=== PATIENT | male | born 1955 | race Caucasian/White ===

== ENCOUNTER 2017-02-22 19:16 | Emergency (ER) | payer OTHER ==
[~2017-02-22] VITALS: Ht 177.8 cm; Wt 104.5 kg
[2017-02-22] VITALS (7 sets, daily range): BP systolic 120–130; BP diastolic 80–95; PULSE 48–65; RESP 16–18; TEMP 97.5–97.6; O2SAT 92–98
[2017-02-22] MEDS ORDERED: GADODIAMIDE PF 287 MG/ML 20 ML VIAL (for RAD MRI) IV PUSH ONE (19:17)
[2017-02-22] MEDS ORDERED: IOHEXOL 350 MG/ML 10 ML VIAL (for RAD DIAG) IVCONTRAST ONE (19:17)
[2017-02-22] MEDS ORDERED: LOVA40TA PO (19:52)
[2017-02-22] MEDS ORDERED: ATEN50TA PO (19:52)
[2017-02-22] MEDS ORDERED: ASPI-516 CHEW (19:52)
[2017-02-22] MEDS ORDERED: SODIUM CHLOR 0.9% 1000 ML INJ 1,000 ML IV ONE (20:09)
[2017-02-22 20:28] LABS: AUTOMATED NEUTROPHIL # 5.9 TH/MM3 (1.8-7.7); BASOPHIL # 0.1 TH/MM3 (0-0.2); BASOPHIL % 0.5 % (0.0-2.0); EOSINOPHIL # 0.2 TH/MM3 (0-0.4); EOSINOPHIL % 1.7 % (0.0-4.0); HEMATOCRIT 44.5 % (39.0-51.0); HEMOGLOBIN 15.3 GM/DL (13.0-17.0); LYMPH % 34.6 % (9.0-44.0); LYMPHOCYTE # 3.8 TH/MM3 (1.0-4.8); MEAN CELL VOLUME 92.7 FL (80.0-100.0); MEAN CORPUSCULAR HEMOGLOBIN 31.9 PG (27.0-34.0); MEAN CORPUSCULAR HGB CONC 34.4 % (32.0-36.0); MEAN PLATELET VOLUME 6.3 FL (7.0-11.0); MONO % 9.3 % (0.0-8.0); NEUT % 53.9 % (16.0-70.0); PLATELET COUNT 226 TH/MM3 (150-450); RED CELL DISTRIBUTION WIDTH 13.9 % (11.6-17.2)
--- NOTE | 2017-02-22 20:34 | RADRPT ---
EXAM DATE/TIME: 02/22/2017 20:15 [facility] COMPARISON: No previous studies available for comparison. INDICATIONS : Stroke alert; nystagmus. RADIATION DOSE: 40.70 CTDIvol (mGy) MEDICAL HISTORY : None SURGICAL HISTORY : None. ENCOUNTER: Initial ACUITY: 1 day PAIN SCALE: 0/10 LOCATION: cranial TECHNIQUE: Multiple contiguous axial images were obtained of the head. Using automated exposure control and adj ustment of the mA and/or kV according to patient size, radiation dose was kept as low as reasonably a chievable to obtain optimal diagnostic quality images. DICOM format image data is available electro nically for review and comparison. FINDINGS: CEREBRUM: The ventricles are normal for age. No evidence of midline shift, mass lesion, hemorrhage or acute in farction. No extra-axial fluid collections are seen. POSTERIOR FOSSA: The cerebellum and brainstem are intact. The 4th ventricle is midline. The cerebellopontine angle i s unremarkable. EXTRACRANIAL: The visualized portion of the orbits is intact. SKULL: The calvaria is intact. No evidence of skull fracture. CONCLUSION: 1. No acute intracranial abnormalities. Mucosal thickening right frontal sinus. Kvng Canas MD on February 22, 2017 at 20:30 Board Certified Radiologist. This report was verified electronically.
[2017-02-22 20:37] LABS: PROTHROMBIN TIME - PATIENT 11.1 SEC (9.8-11.6)
[2017-02-22 20:50] LABS: TROPONIN I LESS THAN 0.02 NG/ML (0.02-0.05)
--- NOTE | 2017-02-22 21:22 | PD ---
HPI Chief Complaint: GI Complaint Time Seen by Provider: 19:40 Travel History International Travel<30 days: No Contact w/Intl Traveler<30days: No Traveled to known affect area: No History of Present Illness HPI This is a 62-year-old man who presents to the emergency department with acute onset of vertigo at 6:45 PM. Patient states she was at a rooftop bar when he turned his head and then had the abrupt onset of severe room spinning vertigo- type symptoms. This is accompanied with nausea and vomiting. No headache. No neck pain. Never had previous similar symptoms. Only history is hypertension hyperlipidemia. Symptoms been constant since onset, severe, without aggravating or alleviating factors. History Past Medical History Narrative Medical Hypertension Hyperlipidemia Tetanus Vaccination: Unknown Influenza Vaccination: Yes Past Surgical History Surgical History: No Previous Surgery Social History Alcohol Use: Yes (2 beers daily) Tobacco Use: No Allergies-Medications (Allergen,Severity, Reaction): Coded Allergies: No Known Drug Allergies (Verified Allergy, Unknown, 02/22/17) Reported Meds & Prescriptions Reported Meds & Active Scripts Active Reported Aspirin 81 Mg Chew 81 Mg CHEW DAILY Lovastatin 40 Mg Tab 40 Mg PO DAILY Atenolol 50 Mg Tab 50 Mg PO DAILY Review of Systems Except as stated in HPI: all other systems reviewed are Neg Physical Exam Narrative GENERAL: This 62-year-old, ill-appearing, diaphoretic and vomiting. SKIN: Cool and clammy. HEAD: Atraumatic. Normocephalic. EYES: Pupils equal and round. Spontaneous right beating nystagmus with a little bit torsional twist. ENT: No nasal bleeding or discharge. Mucous membranes pink and moist. NECK: Trachea midline. No JVD. CARDIOVASCULAR: Regular rate and rhythm. No murmur appreciated. RESPIRATORY: No accessory muscle use. Clear to auscultation. Breath sounds equal bilaterally. GASTROINTESTINAL: Abdomen soft, non-tender, nondistended. Hepatic and splenic margins not palpable. MUSCULOSKELETAL: No obvious deformities. No clubbing. No cyanosis. No edema. NEUROLOGICAL: Awake and alert. No obvious cranial nerve deficits. No facial asymmetry. Right beating nystagmus is noted. Strength full and equal upper and lower extremities. Sensation intact. No obvious dysmetric maybe a tiny bit of pass pointing on the left. Normal [id number]. Normal head impulse test suggestive of intact VOR. Data Data Last Documented VS Vital Signs Date Time Temp Pulse Resp B/P (MAP) Pulse Ox O2 Delivery O2 Flow Rate FiO2 02/22/17 21:45 65 18 130/91 (104) 98 Room Air 02/22/17 19:54 97.5 Orders Orders Diet Npo (02/23/17 Breakfast) Activity Bed Rest (02/22/17 ) Electrocardiogram (02/22/17 ) I-Stat Creatinine (02/22/17 20:09) I-Stat Profile (02/22/17 20:09) Prothrombin Time / Inr (Pt) (02/22/17 20:09) Act Partial Throm Time (Ptt) (02/22/17 20:09) Complete Blood Count With Diff (02/22/17 20:09) Fibrinogen (02/22/17 20:09) Creatine Kinase (Cpk) (02/22/17 20:09) Troponin I (02/22/17 20:09) Ua Includes Microscopic (02/22/17 20:09) Drug Screen, Random Urine (02/22/17 20:09) Type And Screen (02/22/17 20:09) Ct Brain W/O Iv Contrast(Rout) (02/22/17 ) Cta Brain W Iv Contrast W 3d (02/22/17 20:09) Cta Neck W Iv Contrast W 3d (02/22/17 20:09) Consult Neurology (02/22/17 ) Blood Glucose (02/22/17 20:09) Ecg Monitoring (02/22/17 20:09) Neuro Checks Q2HX12,Q4H (02/22/17 20:09) Nursing Bedside Swallow Assess .ONCE (02/22/17 20:09) Iv Access Insert/Monitor (02/22/17 20:09) NPO (02/22/17 20:09) Oximetry (02/22/17 20:09) Oxygen Administration (02/22/17 20:09) Sodium Chlor 0.9% 1000 Ml Inj (Ns 1000 M (02/22/17 20:09) Resp Oxygen Roderick C Titrat 1-4 L (02/22/17 20:09) Cath For Specimen (02/22/17 20:09) Mri Brain W/O Contrast (02/22/17 ) (Hub Use Only)Inp Phy Cons/Ref (02/22/17 ) Iohexol 350 Inj (Omnipaque 350 Inj) (02/22/17 19:17) Mra Carotids W/O Contrast (02/22/17 ) Mra Brain W/O Contrast (Cow) (02/22/17 ) Alcohol (Ethanol) (02/22/17 21:15) Gadodiamide Pf Inj (Omniscan Pf Inj) (02/22/17 19:17) Meclizine (Antivert) (02/22/17 21:45) Diazepam (Valium) (02/22/17 23:00) Methylprednisolone So Succ Inj (Solumedr (02/23/17 00:15) Labs Laboratory Tests Test 02/22/17 20:00 White Blood Count 11.0 TH/MM3 Red Blood Count 4.80 MIL/MM3 Hemoglobin 15.3 GM/DL Bedside Hemoglobin 15.6 G/DL Hematocrit 44.5 % Bedside Hematocrit 46.0 % Mean Corpuscular Volume 92.7 FL Mean Corpuscular Hemoglobin 31.9 PG Mean Corpuscular Hemoglobin Concent 34.4 % Red Cell Distribution Width 13.9 % Platelet Count 226 TH/MM3 Mean Platelet Volume 6.3 FL Neutrophils (%) (Auto) 53.9 % Lymphocytes (%) (Auto) 34.6 % Monocytes (%) (Auto) 9.3 % Eosinophils (%) (Auto) 1.7 % Basophils (%) (Auto) 0.5 % Neutrophils # (Auto) 5.9 TH/MM3 Lymphocytes # (Auto) 3.8 TH/MM3 Monocytes # (Auto) 1.0 TH/MM3 Eosinophils # (Auto) 0.2 TH/MM3 Basophils # (Auto) 0.1 TH/MM3 CBC Comment DIFF FINAL Differential Comment Prothrombin Time 11.1 SEC Prothromb Time International Ratio 1.0 RATIO Activated Partial Thromboplast Time 21.5 SEC Fibrinogen 270 mg/dL Bedside Sodium 143 MMOL/L Bedside Potassium 3.7 MMOL/L Bedside Chloride 103 MMOL/L Bedside Blood Urea Nitrogen 14 MG/DL Bedside Creatinine 1.0 MG/DL Bedside Glucose 108 MG/DL Total Creatine Kinase 119 U/L Troponin I LESS THAN 0.02 NG/ML Ethyl Alcohol Level LESS THAN 3 MG/DL MDM Medical Decision Making Medical Screen Exam Complete: Yes Emergency Medical Condition: Yes Interpretation(s) My review of EKG: Sinus bradycardia at a rate of 50, normal axis, normal intervals, no definite evidence of acute ischemia. LABS: CBC is unremarkable. CMP is unremarkable. Alcohol negative Coags unremarkable Head CT is negative CTAs are negative MRI is negative MRA is negative Differential Diagnosis Vestibular neuritis, vestibular migraine, CVA, dissection, BPPV, other Narrative Course Medical decision making INITIAL: This 62-year-old man who presents the abrupt onset of vertigo with obvious spontaneous right beating nystagmus and possibly a small amount of pass pointing in the left upper extremity. NIH stroke scale on arrival Patient with acute vestibular syndrome, Abrupt onset of nature associated with an intact VOR concerning for central vertigo or stroke versus acute vestibular migraine. Given this, patient called as a stroke alert. I spoke with Dr. Mart. She recommends emergent MRI imaging. CTA was ordered as well to evaluate for dissection. Study quality was poor an MRA was added as well. I spoke with Dr. Canas regarding the initial head CT findings. FINAL: All imaging is negative suggesting against acute stroke or dissection. Patient's symptoms either vestibular migraine or acute vestibular neuritis. Patient has no history of migraines. We'll treat with steroid taper, meclizine , outpatient follow-up. Diagnosis Primary Impression: Acute vestibular neuritis Additional Instructions: Take steroid taper as prescribed. Use meclizine as needed for symptoms. If he can stop the meclizine after 48 hours of this will allow you to recover more quickly. Return to the emergency department for any new or worsening symptoms. Med/Other Pt SpecificInfo: Prescription(s) given Scripts Meclizine (Meclizine) 25 Mg Tab 25 MG PO TID Y for VERTIGO, #15 TAB 0 Refills Prov: Herbert Haney MD 02/23/17 Prednisone (48) 10 mg tab Dose Pack (Prednisone (48) 10 mg tab Dose Pack) 10 Mg Dspk 10 MG PO DIRECTED for Inflammation, #1 DSPK 0 Refills Prov: Herbert Haney MD 02/23/17 Disposition: 01 DISCHARGE HOME Condition: Stable Herbert Haney MD Feb 22, 2017 21:22
--- NOTE | 2017-02-22 21:28 | RADRPT ---
EXAM DATE/TIME: 02/22/2017 20:26 [facility] COMPARISON: No previous studies available for comparison. INDICATIONS : CVA. MEDICAL HISTORY : Hypertension. SURGICAL HISTORY : None. ENCOUNTER: Initial ACUITY: 1 day PAIN SCORE: 0/10 LOCATION: cranial TECHNIQUE: Multiplanar, multisequence MRI of the brain was performed without contrast. FINDINGS: CEREBRUM: The ventricles are normal for age. No evidence of midline shift, mass lesion, hemorrhage or acute in farction. No extraaxial fluid collections are seen. The pituitary gland and suprasellar cistern are normal in configuration. WHITE MATTER: No significant signal abnormalities are seen in the white matter. POSTERIOR FOSSA: The cerebellum and brainstem are intact. The 4th ventricle is midline. The cerebellopontine angle is unremarkable. The cerebellar tonsils are normal in position. DIFFUSION IMAGING: No focal areas of restricted diffusion are seen. No evidence of acute infarction. EXTRACRANIAL: The visualized portions of the orbits and paranasal sinuses are unremarkable. CONCLUSION: Negative for recent infarct. Right frontal sinus disease. No acute brain parenchymal abnormalities. Kvng Canas MD on February 22, 2017 at 21:22 Board Certified Radiologist. This report was verified electronically.
--- NOTE | 2017-02-22 21:31 | RADRPT ---
EXAM DATE/TIME: 02/22/2017 20:15 [facility] COMPARISON: No previous studies available for comparison. INDICATIONS : Stroke alert; nistagmus. IV CONTRAST: 100 cc Omnipaque 350 (iohexol) IV ; Cumulative dose for multiple exams. RADIATION DOSE: 28.84 CTDIvol (mGy) ; Combined studies MEDICAL HISTORY : None SURGICAL HISTORY : None. ENCOUNTER: Initial ACUITY: 1 day PAIN SCALE: 0/10 LOCATION: cranial TECHNIQUE: Volumetric scanning was performed using a multi-row detector CT scanner. The data was post processed with a variety of visualization algorithms including full volume maximum intensity projection, multi -planar sliding thin slab reformation, curved planar reformation, and surface rendering techniques. Using automated exposure control and adjustment of the mA and/or kV according to patient size, radiat ion dose was kept as low as reasonably achievable to obtain optimal diagnostic quality images. DICO M format image data is available electronically for review and comparison. FINDINGS: There is excellent visualization of the major intracranial arteries out to the second-order branch ve ssels. There is no evidence for aneurysm, vessel truncation or stenosis, and no evidence for vascula r malformation. CONCLUSION: Normal examination for a patient of this age. Kvng Canas MD on February 22, 2017 at 21:27 Board Certified Radiologist. This report was verified electronically.
--- NOTE | 2017-02-22 21:34 | RADRPT ---
EXAM DATE/TIME: 02/22/2017 21:01 [place] Corrected on: February 25, 2017; correct to add contrast to description added contrast amount [facility] COMPARISON: No previous studies available for comparison. INDICATIONS : Stroke. CONTRAST 20cc Omniscan (gadodiamide) IV MEDICAL HISTORY : Hypertension. SURGICAL HISTORY : None. ENCOUNTER: Subsequent ACUITY: 1 day PAIN SCORE: 0/10 LOCATION: cranial Percent stenosis is calculated using the diameter of the stenotic region over the diameter of the nor mal distal internal carotid artery. TECHNIQUE: 3D time of flight MRA of the extracranial circulation was performed using a neurovascular coil. Post processing was performed including rotating subvolume maximum intensity projections of each carotid artery, rotating full-volume maximum intensity projections of both carotid arteries, sagittal and cor onal sliding thin-slab reformations of each carotid artery, and left oblique sliding thin slab reform ation through the aortic arch to include the origin of the arch branch vessels. FINDINGS: AORTIC ARCH: There is a three vessel origin of the great vessels from the aorta. No evidence of ostial narrowing. RIGHT CAROTID: The common carotid artery is intact. Mild plaque at the carotid bifurcation without stenosis. The int ernal carotid artery lumen is smooth without stenosis. The external carotid artery is intact. LEFT CAROTID: The common carotid artery is intact. Mild plaque at the carotid bifurcation without stenosis. The int ernal carotid artery lumen is smooth without stenosis. The external carotid artery is intact. VERTEBRALS: The vertebral arteries have a symmetric diameter. No stenotic lesions are seen. CONCLUSION: 1. Mild plaque formation at the carotid bifurcations bilaterally without stenosis. Vertebral arteries are patent in the neck bilaterally. Kvng Canas MD on February 22, 2017 at 21:29 Board Certified Radiologist. This report was verified electronically.
[2017-02-22] MEDS ORDERED: MECLIZINE HCL 25 MG TAB PO ONE (21:45)
--- NOTE | 2017-02-22 21:45 | RADRPT ---
EXAM DATE/TIME: 02/22/2017 20:26 [facility] COMPARISON: No previous studies available for comparison. INDICATIONS : Stroke. MEDICAL HISTORY : Hypertension. SURGICAL HISTORY : None. ENCOUNTER: Subsequent ACUITY: 1 day PAIN SCORE: 0/10 LOCATION: cranial Please note a normal MRA of the brain does not entirely exclude the possibility of a small aneurysm, nor the possibility of distal intracranial vessel disease. TECHNIQUE: 3D time of flight MRA was performed. Source images, multiplanar STS MIP, and 3D volume MIP reconstru ctions were reviewed. FINDINGS: There is excellent visualization of the major intracranial arteries out to the second-order branch ve ssels. There is no evidence for aneurysm, vessel truncation or stenosis, and no evidence for vascula r malformation. CONCLUSION: 1. Unremarkable MRA brain. 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 Kvng Canas MD on February 22, 2017 at 21:38 Board Certified Radiologist. This report was verified electronically.
--- NOTE | 2017-02-22 21:45 | RADRPT ---
EXAM DATE/TIME: 02/22/2017 20:26 [facility] COMPARISON: No previous studies available for comparison. INDICATIONS : Stroke. MEDICAL HISTORY : Hypertension. SURGICAL HISTORY : None. ENCOUNTER: Subsequent ACUITY: 1 day PAIN SCORE: 0/10 LOCATION: cranial Please note a normal MRA of the brain does not entirely exclude the possibility of a small aneurysm, nor the possibility of distal intracranial vessel disease. TECHNIQUE: 3D time of flight MRA was performed. Source images, multiplanar STS MIP, and 3D volume MIP reconstru ctions were reviewed. FINDINGS: There is excellent visualization of the major intracranial arteries out to the second-order branch ve ssels. There is no evidence for aneurysm, vessel truncation or stenosis, and no evidence for vascula r malformation. CONCLUSION: 1. Unremarkable MRA brain. 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 Kvng Canas MD on February 22, 2017 at 21:38 Board Certified Radiologist. This report was verified electronically.
--- NOTE | 2017-02-22 21:45 | RADRPT ---
EXAM DATE/TIME: 02/22/2017 20:26 [facility] COMPARISON: No previous studies available for comparison. INDICATIONS : Stroke. MEDICAL HISTORY : Hypertension. SURGICAL HISTORY : None. ENCOUNTER: Subsequent ACUITY: 1 day PAIN SCORE: 0/10 LOCATION: cranial Please note a normal MRA of the brain does not entirely exclude the possibility of a small aneurysm, nor the possibility of distal intracranial vessel disease. TECHNIQUE: 3D time of flight MRA was performed. Source images, multiplanar STS MIP, and 3D volume MIP reconstru ctions were reviewed. FINDINGS: There is excellent visualization of the major intracranial arteries out to the second-order branch ve ssels. There is no evidence for aneurysm, vessel truncation or stenosis, and no evidence for vascula r malformation. CONCLUSION: 1. Unremarkable MRA brain. 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 Kvng Canas MD on February 22, 2017 at 21:38 Board Certified Radiologist. This report was verified electronically.
[2017-02-22] MEDS ORDERED: DIAZEPAM 2 MG TAB PO ONE (23:00)
[2017-02-23] MEDS ORDERED: MECL-62 PO (00:12)
[2017-02-23] MEDS ORDERED: PRED10PA2 PO (00:12)
[2017-02-23] MEDS ORDERED: methylPREDNISolone SOD SUCC 125 MG/2 ML VIAL IV PUSH ONE (00:15)
[2017-02-23 00:16] VITALS: O2SAT 97
[2017-02-23] MEDS ORDERED: MECLIZINE HCL 25 MG TAB PO ONE (01:00)
--- NOTE | 2017-02-24 21:07 | EKG ---
Date Performed: 02/22/2017 Time Performed: 19:48:05 PTAGE: 62 years EKG: SINUS BRADYCARDIA BORDERLINE ECG NO PREVIOUS TRACING DOCTOR: Melinda Irvin Interpretating Date/Time 02/24/2017 20:58:52
--- NOTE | 2017-02-24 21:07 | EKG ---
Date Performed: 02/22/2017 Time Performed: 19:48:05 PTAGE: 62 years EKG: SINUS BRADYCARDIA BORDERLINE ECG NO PREVIOUS TRACING DOCTOR: Melinda Irvin Interpretating Date/Time 02/24/2017 20:58:52
--- NOTE | 2017-02-24 21:07 | EKG ---
Date Performed: 02/22/2017 Time Performed: 19:48:05 PTAGE: 62 years EKG: SINUS BRADYCARDIA BORDERLINE ECG NO PREVIOUS TRACING DOCTOR: Melinda Irvin Interpretating Date/Time 02/24/2017 20:58:52
== END 2017-02-23 02:12 | disposition home or self-care (01) ==
LOC: NEPE 19:16
DX: H93.3X9 Disorders of unspecified acoustic nerve (principal); I10 Essential (primary) hypertension; E78.5 Hyperlipidemia, unspecified; Z79.82 Long term (current) use of aspirin; Z79.899 Other long term (current) drug therapy
CPT/HCPCS: 70450; 70496; 70544; 70547; 70548; 70551; 80307; 82435; 82550; 82565; 82947; 84132; 84295; 84484; 84520; 85025; 85384; 85610; 85730; 86850; 86900; 86901; 93005; 96374; 99285; A9579; J2930; J7030; Q9967